=== PATIENT | female | born 1995 | race Hispanic/Latino ===

== ENCOUNTER 2020-02-18 22:16 | Emergency (ER) | payer OTHER, SELFPAY ==
[2020-02-18] MEDS ORDERED: ACETAMINOPHEN EXTRA STRENGTH 500 MG TABLET ONE (22:37)
[2020-02-18 23:24] LABS: RAPID GROUP A STREP NEGATIVE (NEGATIVE)
== END 2020-02-19 01:03 | disposition home or self-care (01) ==
LOC: EDH 22:16
DX: H66.92 Otitis media, unspecified, left ear (principal); R50.9 Fever, unspecified; R05 Cough; Z20.828 Contact with and (suspected) exposure to other viral communicable diseases; Z90.49 Acquired absence of other specified parts of digestive tract
CPT/HCPCS: 36415; 71045; 81025; 87635; 87804; 87880

== ENCOUNTER 2022-01-13 03:02 | Emergency (ER) | payer MEDICAID ==
[~2022-01-13] VITALS: Ht 160 cm; Wt 106.6 kg
[~2022-01-13 03:02] MED LIST: CEPH500B PO
[2022-01-13 03:49] LABS: APPEARANCE,URINE CLEAR (CLEAR); BILIRUBIN,URINE NEGATIVE (NEGATIVE); COLOR,URINE YELLOW (YELLOW); GLUCOSE, URINE (UA) NEGATIVE (NEGATIVE); KETONES,URINE NEGATIVE (NEGATIVE); LEUKOCYTE ESTERASE ,URINE NEGATIVE (NEGATIVE); NITRATE,URINE NEGATIVE (NEGATIVE); OCCULT BLOOD,URINE NEGATIVE (NEGATIVE); PROTEIN,URINE NEGATIVE (NEGATIVE)
[2022-01-13 03:58] LABS: BASOPHILS % (AUTO) 0.6 % (0.0-5.0); EOSINOPHILS % (AUTO) 2.4 % (0.0-8.0); HEMATOCRIT 43.6 % (36-48); LYMPHOCYTES % (AUTO) 30.8 % (21.0-51.0); MEAN CORPUSCULAR HEMOGLOBIN 29.3 pg (27.0-33.0); MEAN CORPUSCULAR HGB CONC 31.9 g/dL (32.0-36.0); MONOCYTES % (AUTO) 7.5 % (3.0-13.0); NEUTROPHILS % (AUTO) 58.3 % (40.0-77.0); PLATELET COUNT (AUTO) 390 K/uL (130-400); RED BLOOD CELL COUNT(AUTO) 4.74 MIL/uL (4.00-5.50); RED CELL DISTRIBUTION WIDTH 13.2 % (11.0-15.5); WHITE BLOOD COUNT (AUTO) 9.6 K/uL (4.8-10.8)
[2022-01-13] MEDS ORDERED: KETOROLAC 60 MG VIAL (30MG/ML) IM ONE (04:00)
[2022-01-13 04:07] LABS: CREATININE 0.6 mg/dL (0.5-1.5); POTASSIUM 3.8 mmol/L (3.5-5.1)
[2022-01-13 04:26] LABS: ALBUMIN 3.9 g/dL (3.5-5.0); BILIRUBIN,TOTAL 0.3 mg/dL (0.2-1.0); TOTAL PROTEIN, SERUM 7.9 g/dL (6.0-8.3)
[2022-01-13 05:08] VITALS: BP 129/66
[2022-01-13] MEDS ORDERED: DICL50TA9 PO (05:18)
== END 2022-01-13 05:31 | disposition home or self-care (01) ==
LOC: EDH 03:02
DX: M94.0 Chondrocostal junction syndrome [Tietze] (principal); Z90.89 Acquired absence of other organs
CPT/HCPCS: 36415; 80053; 81003; 84702; 85025; 96372; 99283; J1885

== ENCOUNTER 2022-01-18 08:26 | Emergency (ER) | payer MEDICAID ==
[~2022-01-18] VITALS: Ht 160 cm; Wt 104.8 kg
[~2022-01-18 08:26] MED LIST changes: +DICL50TA9 PO
[2022-01-18 08:52] LABS: APPEARANCE,URINE Clear (CLEAR); BILIRUBIN,URINE Negative (NEGATIVE); COLOR,URINE Yellow (YELLOW); GLUCOSE, URINE (UA) Negative (NEGATIVE); KETONES,URINE Negative (NEGATIVE); LEUKOCYTE ESTERASE ,URINE Negative (NEGATIVE); NITRATE,URINE Negative (NEGATIVE); OCCULT BLOOD,URINE Negative (NEGATIVE); PH,URINE 5.5 (5.0-8.0); PROTEIN,URINE Negative (NEGATIVE)
[2022-01-18 09:59] VITALS: BP 115/65
== END 2022-01-18 10:00 | disposition home or self-care (01) ==
LOC: EDH 08:26
DX: D17.1 Benign lipomatous neoplasm of skin and subcutaneous tissue of trunk (principal); Z90.89 Acquired absence of other organs; Z79.899 Other long term (current) drug therapy
CPT/HCPCS: 76705; 81003; 81025

== ENCOUNTER → 2022-02-09 | Outpatient (CLI) | payer MEDICAID | END | disposition home or self-care (01) | LOC: RAH 13:52 | PROVIDERS: ATTEND Surgery | DX: R10.9 Unspecified abdominal pain (principal) | CPT/HCPCS: 74150 ==

== ENCOUNTER 2022-09-28 19:04 | Emergency (ER) | payer MEDICAID ==
[~2022-09-28] VITALS: Ht 160 cm; Wt 105.7 kg
[2022-09-28 21:25] VITALS: BP 140/73
[2022-09-28] MEDS ORDERED: KETOROLAC 30MG VIAL (30MG/ML) IM ONE (23:00)
[2022-09-29] MEDS ORDERED: IBUP-2070 PO (02:47)
== END 2022-09-29 02:55 | disposition home or self-care (01) ==
LOC: EDH 19:04
DX: S33.8XXA Sprain of other parts of lumbar spine and pelvis, initial encounter (principal); Z79.1 Long term (current) use of non-steroidal anti-inflammatories (NSAID); Z90.49 Acquired absence of other specified parts of digestive tract; W18.49XA Other slipping, tripping and stumbling without falling, initial encounter; Y93.89 Activity, other specified; Y92.89 Other specified places as the place of occurrence of the external cause; Y99.8 Other external cause status
CPT/HCPCS: 99283; 72220; 96372; J1885

== ENCOUNTER 2022-10-27 21:52 | Emergency (ER) | payer MEDICAID ==
[~2022-10-27] VITALS: Ht 162.6 cm; Wt 108.0 kg
[~2022-10-27 21:52] MED LIST changes: +IBUP-2070 PO
[2022-10-27 22:14] VITALS: BP 131/81
[2022-10-27 22:18] LABS: BASOPHILS % (AUTO) 0.5 % (0.0-5.0); EOSINOPHILS % (AUTO) 3.7 % (0.0-8.0); HEMATOCRIT 42.7 % (36-48); LYMPHOCYTES % (AUTO) 25.8 % (21.0-51.0); MEAN CORPUSCULAR HEMOGLOBIN 30.5 pg (27.0-33.0); MEAN CORPUSCULAR HGB CONC 32.8 g/dL (32.0-36.0); MONOCYTES % (AUTO) 8.2 % (3.0-13.0); NEUTROPHILS % (AUTO) 61.4 % (40.0-77.0); PLATELET COUNT (AUTO) 325 K/uL (130-400); RED BLOOD CELL COUNT(AUTO) 4.59 MIL/uL (4.00-5.50); RED CELL DISTRIBUTION WIDTH 13.4 % (11.0-15.5); WHITE BLOOD COUNT (AUTO) 9.9 K/uL (4.8-10.8)
[2022-10-27 22:25] LABS: APPEARANCE,URINE CLOUDY (CLEAR); BILIRUBIN,URINE NEGATIVE (NEGATIVE); COLOR,URINE LIGHT-YELLOW (YELLOW); GLUCOSE, URINE (UA) NEGATIVE (NEGATIVE); KETONES,URINE NEGATIVE (NEGATIVE); LEUKOCYTE ESTERASE ,URINE NEGATIVE Leu/uL (NEGATIVE); NITRATE,URINE NEGATIVE (NEGATIVE); OCCULT BLOOD,URINE NEGATIVE (NEGATIVE); PH,URINE 6.5 (5.0-8.0); PROTEIN,URINE NEGATIVE (NEGATIVE)
[2022-10-27 22:28] LABS: MUCUS,URINE RARE LPF (None Seen); RBC,URINE 0-1 /HPF (0-1); SQUAMOUS EPITHELIAL CELL,UR RARE /HPF (0-2)
== END 2022-10-28 00:08 | disposition home or self-care (01) ==
LOC: EDH 21:52
DX: O26.891 Other specified pregnancy related conditions, first trimester (principal); R10.30 Lower abdominal pain, unspecified; Z3A.01 Less than 8 weeks gestation of pregnancy; Z79.899 Other long term (current) drug therapy; Z98.890 Other specified postprocedural states; Z90.49 Acquired absence of other specified parts of digestive tract
CPT/HCPCS: 36415; 76801; 81001; 84702; 85025

== ENCOUNTER 2023-03-28 14:35 | Observation (INO) | payer MEDICAID ==
[~2023-03-28] VITALS: Ht 160 cm; Wt 113.9 kg
[2023-03-28 14:43] VITALS: BP 123/76
[2023-03-28 15:20] LABS: APPEARANCE,URINE TURBID (CLEAR); BILIRUBIN,URINE NEGATIVE (NEGATIVE); COLOR,URINE YELLOW (YELLOW); GLUCOSE, URINE (UA) NEGATIVE (NEGATIVE); KETONES,URINE NEGATIVE (NEGATIVE); LEUKOCYTE ESTERASE ,URINE 75 Leu/uL (NEGATIVE); NITRATE,URINE NEGATIVE (NEGATIVE); OCCULT BLOOD,URINE NEGATIVE (NEGATIVE); PH,URINE 7.5 (5.0-8.0); PROTEIN,URINE NEGATIVE (NEGATIVE); UROBILINOGEN,URINE 0.2 mg/dL (0.2-1.0)
[2023-03-28 15:28] LABS: BACTERIA,URINE RARE /HPF (None Seen); MUCUS,URINE RARE LPF (None Seen); SQUAMOUS EPITHELIAL CELL,UR MOD /HPF (0-2); WBC,URINE 0-1 /HPF (0-1)
== END 2023-03-28 16:00 | disposition home or self-care (01) ==
LOC: EDH 14:35 → LDH 14:36 → EDH 14:45
PROVIDERS: ADMIT Obstetrics & Gynecology; ATTEND Obstetrics & Gynecology
DX: O36.8130 Decreased fetal movements, third trimester, not applicable or unspecified (principal); Z3A.28 28 weeks gestation of pregnancy; Z79.899 Other long term (current) drug therapy
CPT/HCPCS: 59025; 87088; 81001; G0378; G0379

== ENCOUNTER 2023-06-06 09:03 | Observation (INO) | payer MEDICAID ==
[~2023-06-06 09:03] MED LIST changes: +GUAI5LIQ13 PO
[2023-06-06 09:39] LABS: BILIRUBIN,URINE NEGATIVE (NEGATIVE); COLOR,URINE YELLOW (YELLOW); GLUCOSE, URINE (UA) NEGATIVE (NEGATIVE); KETONES,URINE NEGATIVE (NEGATIVE); LEUKOCYTE ESTERASE ,URINE 500 Leu/uL (NEGATIVE); NITRATE,URINE NEGATIVE (NEGATIVE); OCCULT BLOOD,URINE MODERATE (NEGATIVE); PH,URINE 6.5 (5.0-8.0); PROTEIN,URINE 10 mg/dL (NEGATIVE)
[2023-06-06 09:42] LABS: ADD UA MICROSCOPIC YES; APPEARANCE,URINE HAZY (CLEAR)
[2023-06-06 09:49] LABS: BACTERIA,URINE FEW /HPF (None Seen); MUCUS,URINE RARE LPF (None Seen); SQUAMOUS EPITHELIAL CELL,UR MOD /HPF (0-2)
== END 2023-06-06 11:40 | disposition home or self-care (01) ==
LOC: LDH 09:03
PROVIDERS: ADMIT Obstetrics & Gynecology; ATTEND Obstetrics & Gynecology
DX: O26.893 Other specified pregnancy related conditions, third trimester (principal); R10.9 Unspecified abdominal pain; Z3A.38 38 weeks gestation of pregnancy
CPT/HCPCS: 87088; 81001; G0378; G0379 ×2

== ENCOUNTER 2023-06-07 06:43 | Inpatient (IN) | payer MEDICAID ==
[2023-06-07] MEDS ORDERED: OXYTOCIN-LR 30 UNITS/500ML 500 ML IV SCH ×3 (08:30→12:00)
[2023-06-07] MEDS ORDERED: PROMETHAZINE HCL 25 MG/ML 1ML AMPULE IM PRN (08:30)
[2023-06-07] MEDS ORDERED: MEPERIDINE-PF 50 MG/ML SYG IVP PRN (08:30)
[2023-06-07] MEDS ORDERED: LACTATED RINGERS 1000ML 1,000 ML IV PRN (08:30)
[2023-06-07 08:53] LABS: HEMATOCRIT 37.8 % (36-48); MEAN CORPUSCULAR HEMOGLOBIN 27.3 pg (27.0-33.0); MEAN CORPUSCULAR VOLUME 88.3 fL (79-99); PLATELET COUNT (AUTO) 346 K/uL (130-400); RED BLOOD CELL COUNT(AUTO) 4.28 MIL/uL (4.00-5.50); RED CELL DISTRIBUTION WIDTH 14.2 % (11.0-15.5); WHITE BLOOD COUNT (AUTO) 16.1 K/uL (4.8-10.8)
[2023-06-07] MEDS ORDERED: DIPH,PERTUSS(ACELL),TET VAC/PF 0.5 ML VIAL IM PRN (12:00)
[2023-06-07] MEDS ORDERED: ACETAMINOPHEN WITH CODEINE 1 TAB TAB PO PRN (12:00)
[2023-06-07] MEDS ORDERED: LANOLIN 30GM OINTMENT TP PRN (12:00)
[2023-06-07] MEDS ORDERED: MEASLES/MUMPS/RUBELLA VACCINE, LIVE 0.5 ML/VIAL SQ PRN (12:00)
[2023-06-07] MEDS ORDERED: WITCH HAZEL 1 PAD TP PRN (12:00)
[2023-06-07] MEDS ORDERED: BENZOCAINE/LANOLIN/ALOE VERA 60 ML AEROSOL TP PRN (12:00)
[2023-06-07] MEDS ORDERED: ACETAMINOPHEN 325 MG TAB PO PRN (12:00)
[2023-06-07] MEDS: IBUPROFEN 600 MG TABLET PO PRN ×2 (14:32→19:54)
[2023-06-07 14:36] VITALS: BP 128/65; PULSE 85; RESP 18
[2023-06-07 16:21] VITALS: BP 111/54; PULSE 76; RESP 18
[2023-06-07 19:31] VITALS: BP 107/62; PULSE 85; RESP 18
[2023-06-07] MEDS: DOCUSATE SODIUM 100 MG CAP PO SCH (21:28)
[2023-06-07 23:18] VITALS: BP 104/59; PULSE 88; RESP 18
[2023-06-08 04:17] VITALS: BP 99/61; PULSE 81; RESP 18
[2023-06-08 06:47] LABS: HEMATOCRIT 31.4 % (36-48); MEAN CORPUSCULAR HEMOGLOBIN 27.2 pg (27.0-33.0); MEAN CORPUSCULAR HGB CONC 31.2 g/dL (32.0-36.0); MEAN CORPUSCULAR VOLUME 87.2 fL (79-99); RED BLOOD CELL COUNT(AUTO) 3.6 MIL/uL (4.00-5.50); RED CELL DISTRIBUTION WIDTH 14.3 % (11.0-15.5); WHITE BLOOD COUNT (AUTO) 13.9 K/uL (4.8-10.8)
[2023-06-08 07:13] VITALS: BP 120/71; PULSE 72; RESP 18
[2023-06-08] MEDS: DOCUSATE SODIUM 100 MG CAP PO SCH (09:10)
[2023-06-08] MEDS: IBUPROFEN 600 MG TABLET PO PRN (09:11)
[2023-06-08 12:00] VITALS: BP 110/67; PULSE 75; RESP 18
[2023-06-08 15:37] LABS: RAPID PLASMA REAGIN NONREACTIVE (NONREACTIVE)
[2023-06-08 15:53] VITALS: BP 117/78; PULSE 105; RESP 18
[2023-06-08] MEDS ORDERED: IBUP-2088 PO (17:24)
== END 2023-06-08 18:25 | disposition home or self-care (01) | DRG 560 ==
LOC: OBSVTOIN 06:43 → LDH 06:43 → WSH 14:38
PROVIDERS: ADMIT Obstetrics & Gynecology; ATTEND Obstetrics & Gynecology
PROC: 10E0XZZ Delivery of Products of Conception, External Approach (ICD-10-PCS; principal; 2023-06-07)
PROC: 0W8NXZZ Division of Female Perineum, External Approach (ICD-10-PCS; 2023-06-07)
DX: O80 Encounter for full-term uncomplicated delivery (principal); Z37.0 Single live birth; Z3A.38 38 weeks gestation of pregnancy
CPT/HCPCS: 36415; 81001; 85027; 86592; 86701; 86850; 86900; 86901; 87088; 87340; 87390; G0378; G0379; J2175; J2550; J7120

== ENCOUNTER 2024-03-21 08:46 | Day surgery (SDC) | payer MEDICAID ==
[2024-03-19 09:18] LABS: BASOPHILS # (AUTO) 0.08 K/uL (0.00-0.20); BASOPHILS % (AUTO) 0.9 % (0.0-5.0); EOSINOPHILS # (AUTO) 0.39 K/uL (0.00-0.70); EOSINOPHILS % (AUTO) 4.5 % (0.0-8.0); HEMATOCRIT 42.6 % (36-48); IMMATURE GRANULOCYTE ABSOLUTE 0.03 K/uL (0-1); LYMPHOCYTES # (AUTO) 2.2 K/uL (1.0-4.8); LYMPHOCYTES % (AUTO) 25.3 % (21.0-51.0); MEAN CORPUSCULAR HGB CONC 31.5 g/dL (32.0-36.0); MEAN CORPUSCULAR VOLUME 92.2 fL (79-99); MONOCYTES # (AUTO) 0.8 K/uL (0.1-1.0); MONOCYTES % (AUTO) 9.3 % (3.0-13.0); NEUTROPHILS # (AUTO) 5.1 K/uL (1.8-7.7); NEUTROPHILS % (AUTO) 59.7 % (40.0-77.0); PLATELET COUNT (AUTO) 355 K/uL (130-400); RED BLOOD CELL COUNT(AUTO) 4.62 MIL/uL (4.00-5.50); WHITE BLOOD COUNT (AUTO) 8.6 K/uL (4.8-10.8)
[2024-03-19 10:24] VITALS: BP 120/79; PULSE 82; RESP 20
[~2024-03-21] VITALS: Ht 165.1 cm; Wt 118.6 kg
[2024-03-21] VITALS (17 sets, daily range): BP systolic 109–123; BP diastolic 65–78; PULSE 69–82; RESP 15–17
[2024-03-21] MEDS ORDERED: PROPOFOL 10 MG/ML 20ML VIAL IV ONE (10:07)
[2024-03-21] MEDS ORDERED: ROCURONIUM BROMIDE 10MG/1ML 5ML VL ONE (10:07)
[2024-03-21] MEDS ORDERED: SUCCINYLCHOLINE CHLORIDE 20 MG/ML 10 ML VIAL ONE (10:07)
[2024-03-21] MEDS ORDERED: MIDAZOLAM HCL 1 MG/ML 2ML VIAL ONE (10:07)
[2024-03-21] MEDS ORDERED: FENTANYL CITRATE PF 50 MCG/1 ML 2ML VIAL ONE (10:07)
[2024-03-21] MEDS: CEFAZOLIN SODIUM 1 GM VIAL ONE (10:14)
[2024-03-21] MEDS: LACTATED RINGERS 1000ML 1,000 ML IV ONE (10:14)
[2024-03-21] MEDS: CEFAZOLIN SODIUM 2 GM VIAL ONE (10:14)
[2024-03-21] MEDS: BUPIVACAINE/PF 0.5% 30ML VIAL ONE (10:26)
[2024-03-21] MEDS: LIDOCAINE HCL 1% 20 ML VIAL ONE (10:26)
[2024-03-21] MEDS ORDERED: GLYCOPYRROLATE 0.2 MG/ML 5 ML VIAL ONE (11:01)
[2024-03-21] MEDS ORDERED: NEOSTIGMINE METHYLSULFATE 1MG/ML IV ONE (11:01)
[2024-03-21] MEDS: MEPERIDINE-PF 25 MG/ML SYG ONE (11:25)
[2024-03-21] MEDS: KETOROLAC 30MG VIAL (30MG/ML) ONE (11:32)
== END 2024-03-21 12:45 | disposition home or self-care (01) ==
LOC: DAH 08:46
PROVIDERS: ATTEND Student in an Organized Health Care Education/Training Program
DX: R22.2 Localized swelling, mass and lump, trunk (principal); D17.1 Benign lipomatous neoplasm of skin and subcutaneous tissue of trunk; E66.01 Morbid (severe) obesity due to excess calories; Z68.41 Body mass index [BMI] 40.0-44.9, adult; Z72.89 Other problems related to lifestyle; Z98.890 Other specified postprocedural states
CPT/HCPCS: 84703; 85025; 36415; 22903 ×2; 88304; A6260; A4663; J7120; J3010; J0690 ×2; J0330; J3490 ×3; J2250; J1885; J2710; J0665; J2175; A4930; A4215; A4223; A4222; A4221; A4600; J2704; G0168

== ENCOUNTER 2024-04-04 22:11 | Emergency (ER) | payer MEDICAID ==
[~2024-04-04] VITALS: Ht 165.1 cm; Wt 113.4 kg
[2024-04-05 00:30] LABS: CREATININE 0.6 mg/dL (0.5-1.0)
[2024-04-05 00:33] LABS: BASOPHILS # (AUTO) 0.06 K/uL (0.00-0.20); BASOPHILS % (AUTO) 0.5 % (0.0-5.0); EOSINOPHILS % (AUTO) 3.6 % (0.0-8.0); HEMATOCRIT 41.8 % (36-48); IMMATURE GRANULOCYTE ABSOLUTE 0.05 K/uL (0-1); LYMPHOCYTES # (AUTO) 2.9 K/uL (1.0-4.8); LYMPHOCYTES % (AUTO) 26.2 % (21.0-51.0); MEAN CORPUSCULAR HEMOGLOBIN 29.5 pg (27.0-33.0); MEAN CORPUSCULAR HGB CONC 32.5 g/dL (32.0-36.0); MEAN CORPUSCULAR VOLUME 90.7 fL (79-99); MONOCYTES # (AUTO) 0.8 K/uL (0.1-1.0); MONOCYTES % (AUTO) 7.5 % (3.0-13.0); NEUTROPHILS # (AUTO) 6.8 K/uL (1.8-7.7); NEUTROPHILS % (AUTO) 61.7 % (40.0-77.0); PLATELET COUNT (AUTO) 365 K/uL (130-400); RED BLOOD CELL COUNT(AUTO) 4.61 MIL/uL (4.00-5.50); RED CELL DISTRIBUTION WIDTH 13.8 % (11.0-15.5); WHITE BLOOD COUNT (AUTO) 11.1 K/uL (4.8-10.8)
[2024-04-05 00:34] LABS: ALBUMIN 3.8 g/dL (3.5-5.0); BILIRUBIN,TOTAL 0.2 mg/dL (0.2-1.0); TOTAL PROTEIN, SERUM 8.3 g/dL (6.0-8.3)
[2024-04-05] MEDS: GABAPENTIN 100 MG CAPSULE PO SCH (04:26)
[2024-04-05 04:31] LABS: APPEARANCE,URINE CLEAR (CLEAR); BILIRUBIN,URINE NEGATIVE (NEGATIVE); COLOR,URINE LIGHT-YELLOW (YELLOW); GLUCOSE, URINE (UA) NEGATIVE (NEGATIVE); HCG,QUALITATIVE URINE NEGATIVE (NEGATIVE); KETONES,URINE NEGATIVE (NEGATIVE); LEUKOCYTE ESTERASE ,URINE NEGATIVE Leu/uL (NEGATIVE); NITRATE,URINE NEGATIVE (NEGATIVE); OCCULT BLOOD,URINE NEGATIVE (NEGATIVE); PH,URINE 5.5 (5.0-8.0); PROTEIN,URINE NEGATIVE (NEGATIVE); UROBILINOGEN,URINE 0.2 mg/dL (0.2-1.0)
[2024-04-05 04:33] LABS: ADD UA MICROSCOPIC NO
[2024-04-05] MEDS ORDERED: IOHEXOL 350 MG/ML 100ML INFUS..BTL IV ONE (05:58)
[2024-04-05] MEDS ORDERED: IOHEXOL-350 50ML VIAL IV ONE (05:58)
[2024-04-05] MEDS ORDERED: IBUP-2077 PO (08:12)
[2024-04-05] MEDS ORDERED: GABA-529 PO (08:12)
[2024-04-05 08:24] VITALS: BP 115/56; PULSE 79; RESP 18; O2SAT 97
[2024-04-05] MEDS: KETOROLAC 30MG VIAL (30MG/ML) IVP ONE (08:44)
== END 2024-04-05 09:07 | disposition home or self-care (01) ==
LOC: EDH 22:11
DX: G57.13 Meralgia paresthetica, bilateral lower limbs (principal); Z90.49 Acquired absence of other specified parts of digestive tract; M79.661 Pain in right lower leg
CPT/HCPCS: 99285; 93971; 80053; 85025; 81003; 81025; 36415; 73701; 96374; 74177; J1885; Q9967 ×2